=== PATIENT | female | born 1950 | race Caucasian/White ===

== ENCOUNTER 2023-01-31 10:57 | Emergency (ER) | payer MEDICARE, SELFPAY ==
[2023-01-31] VITALS (13 sets, daily range): BP systolic 109–158; BP diastolic 53–76; PULSE 62–76; RESP 9–26; TEMP 37.1; O2SAT 86–98; BMI 23.6
--- NOTE | 2023-01-31 11:01 | DI.CT.S_ITS ---
PROCEDURE: CT HEAD/BRAIN WO CON INDICATIONS: fall on thinners TECHNIQUE: Noncontrast 4.5 mm thick angled axial sections acquired from the foramen magnum to the vertex, with coronal and sagittal reformats. For radiation dose reduction, the following was used: automated exposure control, adjustment of mA and/or kV according to patient size. COMPARISON: None. FINDINGS: Image quality: Excellent. CSF spaces: Basal cisterns are patent. No extra-axial fluid collections. Ventricles are normal in size and shape. Brain: No midline shift. No intracranial masses or hemorrhage. Jay-white matter interface is normal. Moderate atrophy and mild white matter chronic ischemic changes Skull and face: Calvarium and visualized facial bones are intact, without suspicious lesions. Midline posterior parietal scalp hematoma Sinuses: Visualized sinuses and mastoids are clear. IMPRESSION: Posterior parietal scalp hematoma without skull fracture or intracranial hemorrhage Approved by: Uri Cardoza M.D. on 01/31/2023 at 10:45
--- NOTE | 2023-01-31 11:01 | DI.CT.S_ITS ---
PROCEDURE: CT CERVICAL SPINE WO CON INDICATIONS: fall on thinners TECHNIQUE: Noncontrast 3 mm thick sections acquired from the skull base to the T4 level. Sagittal and coronal reformats were then constructed. For radiation dose reduction, the following was used: automated exposure control, adjustment of mA and/or kV according to patient size. COMPARISON: None. FINDINGS: Image quality: Excellent. Bones: No fractures or dislocations. Visualized superior ribs are intact. Degenerative disc space narrowing and hypertrophic facet joints noted at C4-5, C5-6, and degenerative anterior spondylolisthesis at C6-7 as well as in upper thoracic spine. Soft tissues: Prevertebral soft tissues are normal in thickness. No paravertebral hematomas. No apical pneumothoraces. IMPRESSION: Degenerative changes without fracture or traumatic malalignment Approved by: Uri Cardoza M.D. on 01/31/2023 at 10:51
--- NOTE | 2023-01-31 11:07 | DI.RAD.S_ITS ---
PROCEDURE: XR CHEST 1V INDICATIONS: syncope TECHNIQUE: One view of the chest was acquired. COMPARISON: None. FINDINGS: Surgical changes and devices: None. Lungs and pleura: Minimal left basilar atelectasis and or infiltrate Mediastinum: Mediastinal contours appear normal. Heart size is normal. Atherosclerotic vascular calcification noted in the aortic arch. Bones and chest wall: No suspicious bony lesions. Overlying soft tissues appear unremarkable. IMPRESSION: Minimal left basilar atelectasis and or infiltrate Approved by: Uri Cardoza M.D. on 01/31/2023 at 10:54
[2023-01-31 11:13] LABS: Add Manual Diff / Slide Review NO; Basophils Absolute Auto 100 /uL (0-100); Eosinophils Absolute Auto 100 /uL (0-450); Eosinophils Percent Auto 1.5 % (2-4); Hematocrit 41.6 % (36-46); Hemoglobin 13.9 g/dL (12.0-16.0); Lymphocytes Absolute Auto 2700 /uL (1100-4500); Lymphocytes Percent Auto 39.4 % (25-40); Mean Corpuscular HGB Conc 33.5 % (30-36); Mean Corpuscular Hemoglobin 29.3 PG (26-34); Mean Corpuscular Volume 87.6 fL (80-100); Monocytes Absolute Auto 800 /uL (0-900); Monocytes Percent Auto 11.6 % (3-14); Neutrophils Absolute Auto 3200 /uL (1500-7000); Neutrophils Percent Auto 46.5 % (50-75); Platelet Count 262 X10^3/uL (150-400); Red Blood Cell Count 4.75 X10^6/uL (4.0-5.2); Red Cell Distribution Width 14.8 % (11.6-14.8); White Blood Cell Count 6.8 X10^3/uL (4.5-11.0)
--- NOTE | 2023-01-31 11:14 | ED_ITS ---
HPI - Trauma General Chief Complaint: Syncope Stated Complaint: Fall Time Seen by Provider: 01/31/23 11:07 Source: patient, EMS, RN notes reviewed and old records reviewed Mode of arrival: EMS Limitations: no limitations History of Present Illness HPI narrative: 72-year-old female with history of atrial fibrillation on Eliquis, metoprolol, intermittent hypotension, dyslipidemia and prior small bowel obstructions with reported syncopal episode. Patient also had reported pulmonary emboli after hip fracture in the past. Patient was walking it [facility] with family. She states she felt lightheaded immediately before and then next thing she knows she woke up on the ground. Her family was with her witnessed the event said she shook for about 5 seconds but quickly regained consciousness. Patient has a l arge lump on the back of her. She states hurts in the back of her head, no other intracranial headache, no vision changes, she denies neck pain reported upper thoracic pain and reports some left lateral chest pain by the axilla. Patient denies any shortness of breath. No anterior chest pain. She is nauseated and vomiting. She states she was not immediately afterwards but states after she received narcotic pain medications and she also does not tolerate driving backwards and cars well has had multiple episodes of vomiting and diaphoretic just prior to arrival. Patient denies any abdominal back or flank pain. No other GI or urinary symptoms. No numbness, tingling or weakness. Patient states she is not passed out in the past but has had low blood pressures and was reported have an alert on her Apple watch after the event for a low heart rate. She states her medications include Eliquis, metoprolol for her rhythm at 12.5 mg twice daily and a statin. She is not sure she took her Eliquis and metoprolol this morning. She states she has a known right bundle-branch block, denies any cardiac stents. She is had prior surgery for bowel obstruction and is largest sulfa states she does not tolerate narcotics well. Denies tobacco had a glass of wine last night, no illicit. Related Data Allergies Allergy/AdvReac Type Severity Reaction Status Date / Time Sulfa (Sulfonamide Allergy Verified 01/31/23 11:27 Antibiotics) sulfacetamide Allergy Verified 01/31/23 11:27 [From Sulfamide] Review of Systems Review of Systems ROS Unobtainable: All systems reviewed & are unremarkable except as noted in HPI and below Patient History Social History Smoking Status: Never smoker Exam Narrative Exam Narrative: GEN: Patient appears in moderate distress. HEAD: Patient has hematoma posterior scalp, no obvious abrasion or laceration, no raccoon/Maynard sign. NECK: Nontender, painless range of motion, trachea midline There is no Nexus criteria, no midline line tenderness, distracting injury, altered mental status, neuro deficit, recent EtOH. EYES: PERRLA, EOMI ENT: External inspection normal, trachea is midline, TM's are normal no hemotypanum, Nares are clear, no septal hematoma, no dental or oral injury, airway is normal and with normal occlusion, No bony tenderness RESP: Chest is nontender and has symmetric movement, no ecchymosis, breath sounds are normal no crackles, wheezes or rales CVS: Heart sounds are normal, no murmur noted, No JVD. ABG/GI: Nontender, soft, normal bowel sounds, no distention, no organomegaly, pelvic rock is negative NEURO: Oriented AOx3, neuro is grossly intact, sensation and motor is normal all 4 extremities moving, cranial nerves II through XII are intact, GCS i 15 PSYCH: Normal mood and affect SKIN: Intact, warm and dry, no crepitus and without decubitus BACK: No CVA tenderness, no vertebral tenderness, no step-off's, no crepitus EXT: Atraumatic, hips are nontender, no pedal edema, normal color and temperature, normal range of motion of extremities with normal tendon exam, 2+ pulses in all four extremities Initial Vital Signs Initial Vital Signs: Vital Signs Temperature 98.7 F 01/31/23 11:00 Pulse Rate 63 01/31/23 11:00 Respiratory Rate 20 01/31/23 11:00 Blood Pressure 158/76 H 01/31/23 11:00 Pulse Oximetry 98 01/31/23 11:00 Oxygen Delivery Method Room Air 01/31/23 11:00 Course Orders Ordered: ED Orders 01/31/23 11:00 Complete Blood Count AUTO DIFF Stat Comprehensive Metabolic Panel Stat D Dimer Stat Lipase Stat NT-proBNP (BNP-Adult 18+) Stat PTT Partial Thromboplastin Igor Stat Prothrombin Time INR Stat Troponin & CK Cardiac Panel Stat 01/31/23 11:01 CT cervical spine wo con Stat CT head/brain wo con Stat 01/31/23 11:07 XR chest 1V Stat 01/31/23 11:30 EKG-12 Lead Stat 01/31/23 11:37 COVID19 -Nasal RAPID Stat 01/31/23 12:16 CT angio chest PE protocol Stat 01/31/23 12:30 Trop I [Troponin I] Stat 01/31/23 13:09 Trop I [Troponin I] Stat Discontinued Medications Acetaminophen (Acetaminophen 325 Mg Tablet) 975 mg PO NOW ONE Stop: 01/31/23 14:31 Last Admin: 01/31/23 14:33 Dose: 975 mg Documented By: YOLA Sodium Chloride (Normal Saline 0.9%) 1,000 mls @ 1,000 mls/hr IV BOLUS ONE Stop: 01/31/23 12:06 Last Infusion: 01/31/23 14:06 Dose: 0 mls/hr Documented By: Admin: 01/31/23 12:59 Dose: 1,000 mls/hr Documented By: YOLA Lorazepam (Lorazepam 2 Mg/Ml Inj) 0.5 mg IV NOW ONE Stop: 01/31/23 11:10 Last Admin: 01/31/23 11:26 Dose: 0.5 mg Documented By: YOLA Vital Signs Vital signs: Vital Signs - 8 hr 01/31/23 11:32 01/31/23 11:35 01/31/23 11:35 Pulse Rate 62 62 Respiratory Rate 14 15 Blood Pressure 115/55 L Pulse Oximetry 93 91 01/31/23 12:00 01/31/23 12:00 01/31/23 12:30 Pulse Rate 63 Respiratory Rate 9 L Blood Pressure 109/53 L 109/58 L Pulse Oximetry 95 01/31/23 12:30 01/31/23 13:00 01/31/23 13:30 Pulse Rate 66 68 68 Respiratory Rate 14 14 14 Blood Pressure Pulse Oximetry 97 98 86 L 01/31/23 14:00 01/31/23 14:24 01/31/23 14:24 Pulse Rate 70 73 Respiratory Rate 12 26 H Blood Pressure 113/69 Pulse Oximetry 95 01/31/23 14:27 01/31/23 14:27 01/31/23 14:30 Pulse Rate 76 73 Respiratory Rate 26 H 21 Blood Pressure 122/75 Pulse Oximetry MDM - Trauma Lab Data 01/31/23 11:00 01/31/23 11:00 Labs: Lab Results 01/31/23 01/31/23 01/31/23 Range/Units 11:00 11:00 11:00 WBC 6.8 (4.5-11.0) X10^3/uL RBC 4.75 (4.0-5.2) X10^6/uL Hgb 13.9 (12.0-16.0) g/dL Hct 41.6 (36-46) % MCV 87.6 (80-100) fL MCH 29.3 (26-34) PG MCHC 33.5 (30-36) % RDW 14.8 (11.6-14.8) % Plt Count 262 (150-400) X10^3/uL Neut % (Auto) 46.5 L (50-75) % Lymph % (Auto) 39.4 (25-40) % [place] % (Auto) 11.6 (3-14) % Eos % (Auto) 1.5 L (2-4) % Baso % (Auto) 1.0 (0-2) % Neut # (Auto) 3200 (8248-3189) /uL Lymph # (Auto) 2700 (8880-0273) /uL [place] # (Auto) 800 (0-900) /uL Eos # (Auto) 100 (0-450) /uL Baso # (Auto) 100 (0-100) /uL PT 13.7 H (10.1-12.7) SECONDS INR 1.2 (0.9-1.3) APTT 28 (26-36) SECONDS D-Dimer 2563 H (<500) ng/ml Sodium 139 (137-145) mmol/L Potassium 4.0 (3.4-5.1) mmol/L Chloride 102 (98-107) mmol/L Carbon Dioxide 32 (22-32) mmol/L BUN 13 (7-17) mg/dL Creatinine 0.69 (0.52-1.04) mg/dL Estimated GFR > 60 (>60) mL/min BUN/Creatinine Ratio 18.8 (6-22) Glucose 85 (80-110) mg/dL Calcium 9.3 (8.4-10.2) mg/dL Total Bilirubin 0.4 (0.2-1.3) mg/dL AST 40 H (14-36) IU/L ALT 35 H (<35) IU/L Alkaline Phosphatase 47 (38-126) U/L Total Creatine Kinase 56 (30-135) U/L Troponin I < 0.012 (0.01-0.034) ng/mL NT-Pro-B Natriuret Pep 946 H (<125) pg/mL Total Protein 6.6 (6.3-8.2) g/dL Albumin 4.1 (3.5-5.0) g/dL Globulin 2.5 (1.7-4.1) g/dL Albumin/Globulin Ratio 1.6 (1.0-2.8) Lipase 88 (23-300) U/L SARS-CoV-2 (PCR) (Negative) 01/31/23 01/31/23 01/31/23 Range/Units 11:37 12:30 13:09 WBC (4.5-11.0) X10^3/uL RBC (4.0-5.2) X10^6/uL Hgb (12.0-16.0) g/dL Hct (36-46) % MCV (80-100) fL MCH (26-34) PG MCHC (30-36) % RDW (11.6-14.8) % Plt Count (150-400) X10^3/uL Neut % (Auto) (50-75) % Lymph % (Auto) (25-40) % [place] % (Auto) (3-14) % Eos % (Auto) (2-4) % Baso % (Auto) (0-2) % Neut # (Auto) (9893-9151) /uL Lymph # (Auto) (0084-9328) /uL [place] # (Auto) (0-900) /uL Eos # (Auto) (0-450) /uL Baso # (Auto) (0-100) /uL PT (10.1-12.7) SECONDS INR (0.9-1.3) APTT (26-36) SECONDS D-Dimer (<500) ng/ml Sodium (137-145) mmol/L Potassium (3.4-5.1) mmol/L Chloride (98-107) mmol/L Carbon Dioxide (22-32) mmol/L BUN (7-17) mg/dL Creatinine (0.52-1.04) mg/dL Estimated GFR (>60) mL/min BUN/Creatinine Ratio (6-22) Glucose (80-110) mg/dL Calcium (8.4-10.2) mg/dL Total Bilirubin (0.2-1.3) mg/dL AST (14-36) IU/L ALT (<35) IU/L Alkaline Phosphatase (38-126) U/L Total Creatine Kinase (30-135) U/L Troponin I < 0.012 < 0.012 (0.01-0.034) ng/mL NT-Pro-B Natriuret Pep (<125) pg/mL Total Protein (6.3-8.2) g/dL Albumin (3.5-5.0) g/dL Globulin (1.7-4.1) g/dL Albumin/Globulin Ratio (1.0-2.8) Lipase (23-300) U/L SARS-CoV-2 (PCR) Negative (Negative) Imaging Data CT scan - head: Radiologist's Impression: [place] [address] CT Scan Report Signed Patient: Barbie Olson MR#: [id number] : 1950 Acct:[id number] Age/Sex: 72 / F Date of Service: 01/31/23 Loc: ED Accession Number: [id number] ?? Procedure: CT head/brain wo con Ordering Provider: Maribeth Hawk D.O. PROCEDURE:? CT HEAD/BRAIN WO CON ? INDICATIONS:? fall on thinners ? TECHNIQUE:? Noncontrast 4.5 mm thick angled axial sections acquired from the foramen magnum to the vertex, with coronal and sagittal reformats.? For radiation dose reduction, the following was used:? automated exposure control, adjustment of mA and/or kV according to patient size.? ? COMPARISON:? None. ? FINDINGS:? Image quality:? Excellent.? ? CSF spaces:? Basal cisterns are patent.? No extra-axial fluid collections.? Ventricles are normal in size and shape.? ? Brain:? No midline shift.? No intracranial masses or hemorrhage.? Jay-white matter interface is normal.? Moderate atrophy and mild white matter chronic ischemic changes ? Skull and face:? Calvarium and visualized facial bones are intact, without suspicious lesions.? Midline posterior parietal scalp hematoma ? Sinuses:? Visualized sinuses and mastoids are clear.? ? IMPRESSION:? ? Posterior parietal scalp hematoma without skull fracture or intracranial hemorrhage ? ? ? Approved by: Uri Cardoza M.D. on 01/31/2023 at 10:45? CT - cervical spine: Radiologist's Impression: Close Chest X-Ray (Signed) Aram Cardozaic - 01/31/[address] (Signed) Cardoza,Uri - 01/31/[address] (Signed) SoynUri - 01/31/23 Launch?Image [address] [address] [address] Scan Report Signed Patient: Barbie Olson MR#: [id number] : 1950 Acct:[id number] Age/Sex: 72 / F Date of Service: 01/31/23 Loc: ED Accession Number: [id number] ?? Procedure: CT cervical spine wo con Ordering Provider: Maribeth Hawk D.O. PROCEDURE:? CT CERVICAL SPINE WO CON ? INDICATIONS:? fall on thinners ? TECHNIQUE:? Noncontrast 3 mm thick sections acquired from the skull base to the T4 level.? Sagittal and coronal reformats were then constructed.? For radiation dose reduction, the following was used:? automated exposure control, adjustment of mA and/or kV according to patient size.? ? COMPARISON:? None. ? FINDINGS:? Image quality:? Excellent.? ? Bones:? No fractures or dislocations.? Visualized superior ribs are intact.? Degenerative disc space narrowing and hypertrophic facet joints noted at C4-5, C5-6, and degenerative anterior spondylolisthesis at C6-7 as well as in upper thoracic spine. ? Soft tissues:? Prevertebral soft tissues are normal in thickness.? No paravertebral hematomas.? No apical pneumothoraces.? ? ? IMPRESSION:? ? Degenerative changes without fracture or traumatic malalignment ? Approved by: Uri Cardoza M.D. on 01/31/2023 at 10:51? Chest x-ray: Radiologist's Impression: [address] [address] XRay Report Signed Patient: Barbie Olson MR#: [id number] : 1950 Acct:[id number] Age/Sex: 72 / F Date of Service: 01/31/23 Loc: ED Accession Number: [id number] ?? Procedure: XR chest 1V Ordering Provider: Maribeth Hawk D.O. PROCEDURE:? XR CHEST 1V ? INDICATIONS:? syncope ? TECHNIQUE:? One view of the chest was acquired.? ? COMPARISON:? None. ? FINDINGS:? ? Surgical changes and devices:? None.? ? Lungs and pleura:? Minimal left basilar atelectasis and or infiltrate ? Mediastinum:? Mediastinal contours appear normal.? Heart size is normal.? Atherosclerotic vascular calcification noted in the aortic arch. ? Bones and chest wall:? No suspicious bony lesions.? Overlying soft tissues appear unremarkable.? ? IMPRESSION:? ? Minimal left basilar atelectasis and or infiltrate ? ? ? Approved by: Uri Cardoza M.D. on 01/31/2023 at 10:54? ECG Data Attestation: I personally reviewed and interpreted this ECG as follows: Prior ECG tracings: not available for review Interpretation: Sinus rhythm, left anterior fascicular block rate of 61 DE 164 QRS of 106 QTC of 444. No acute ST changes. No priors. EKG 2. Normal sinus rate of 70 DE 156 QRS of 96 QTC 462 normal sinus rhythm left anterior fascicular block. Appear similar to today's earlier EKG. MDM Narrative Medical decision making narrative: 72-year-old female [place] she had an unprovoked syncopal episode. She hit her head. No seizure-like activity reported, patient did not have a postictal state. She has not had recurrent episodes of syncope in the past but she has known low blood pressure and low heart rate. She has a history of atrial fibrillation, she is on metoprolol daily states she runs normally 100 systolic to 110. Patient was quite nauseated and vomiting after transport but states she was not initially she did receive narcotic pain medications and she states riding backwards and vehicles very much causes her to be nauseated. I suspect she has potential concussion but is anticoagulated so had head CT as well as C-spine which not show acute change. Chest x-ray did not show any obvious changes labs were negative troponin x2 she did have an elevated dimer less likely to be pulmonary emboli she states she takes her medications regularly but had unprovoked syncope and hypotension. CT angio shows pulmonary nodule, T5 compression fracture consistent with her thoracic pain and no but no other acute pulmonary changes some mild coronary artery are sclerosis and a hiatal hernia. Patient's labs overall electrolytes, blood count, renal function, BNP did not show other acute cause. Patient has been bradycardic at times but appropriate here in the department. She is able to ambulate without much issue. She does have some persistent midthoracic pain consistent with her thoracic vertebral compression fracture. She prefers nonnarcotic medications was given Tylenol. Reviewed all of her findings need for follow-up, return precautions. Discussed with patient need for follow up with Holter monitor or ZIO patch as well as follow-up imaging for the nodule on her right upper lobe. Discharge Plan Departure Patient Disposition: Home Clinical Impression: Closed wedge compression fracture of T5 vertebra, Pulmonary nodule, Syncope, Hiatal hernia, Concussion, Scalp hematoma Instructions: DI for Syncope in Adults (Fainting) Activity Restrictions/Additional Instructions: Please follow-up with your physician for recheck. I would recommend having a ZIO patch Holter monitor as an outpatient. Your workup today shows a small compression fracture at your 5th thoracic vertebrae this maybe older new but secondary to your fall could be new. You do have a pulmonary nodule on your imaging is recommended have follow-up and repeat imaging to follow this Please return for recurrent episodes of lightheadedness or passing out, fast or irregular heartbeat, chest pain, shortness of breath, new swelling in her extremities or other new or concerning changes. Referrals: Miscellaneous,Doctor, [Primary Care Provider] - Stand Alone Forms: Patient Portal/API
[2023-01-31 11:19] LABS: Alanine Aminotransferase 35 IU/L (<35); Albumin 4.1 g/dL (3.5-5.0); Albumin Globulin Ratio 1.6 (1.0-2.8); Alkaline Phosphatase 47 U/L (38-126); Aspartate Aminotransferase 40 IU/L (14-36); BUN Creatinine Ratio 18.8 (6-22); Bilirubin Total 0.4 mg/dL (0.2-1.3); Blood Urea Nitrogen 13 mg/dL (7-17); Calcium 9.3 mg/dL (8.4-10.2); Carbon Dioxide 32 mmol/L (22-32); Chloride 102 mmol/L (98-107); Creatine Kinase 56 U/L (30-135); Estimated Glomerular Filt Rate > 60 mL/min (>60); Globulin 2.5 g/dL (1.7-4.1); Glucose 85 mg/dL (80-110); HEMOLYSIS < 15 (0-50); Lipase 88 U/L (23-300); Sodium 139 mmol/L (137-145); Total Protein 6.6 g/dL (6.3-8.2)
[2023-01-31 11:24] LABS: INR 1.2 (0.9-1.3); Prothrombin Time 13.7 SECONDS (10.1-12.7)
[2023-01-31 11:25] LABS: D Dimer 2563 ng/ml (<500)
[2023-01-31 11:26] LABS: PTT Partial Thromboplastin Tim 28 SECONDS (26-36)
[2023-01-31] MEDS: LORazepam 2 MG/ML INJ 0.5 MG IV (11:26)
[2023-01-31 11:31] LABS: NT-proBNP (BNP-Adult 18+) 946 pg/mL (<125); Troponin I < 0.012 ng/mL (0.01-0.034)
[2023-01-31 11:56] LABS: COVID19 -Nasal RAPID Negative (Negative)
--- NOTE | 2023-01-31 12:16 | DI.CT.S_ITS ---
PROCEDURE: CT ANGIO CHEST PE PROTOCOL INDICATIONS: thoracic back pain, syncope, elevated dimer TECHNIQUE: After the administration of intravenous contrast, 2 mm thick sections acquired from the pulmonary apices to the posterior costophrenic angles. 3-dimensional maximum intensity projection (MIP) coronal and sagittal reformats were then acquired through the thorax. For radiation dose reduction, the following was used: automated exposure control, adjustment of mA and/or kV according to patient size. COMPARISON: None. FINDINGS: Image quality: Excellent. Pulmonary arteries: Pulmonary arteries are normal in size, and demonstrate no intraluminal filling defects to suggest central pulmonary embolism. Lungs and pleura: There is a 2 mm nodule in the right upper lobe (series 5, image 75). Lungs are otherwise clear. No pleural effusions or pneumothorax. Central and peripheral airways are patent. Mediastinum: Heart size is normal, without pericardial effusion. There is a borderline enlarged right paratracheal lymph node measuring 1 cm. Thoracic aorta is normal in caliber and enhancement. Esophagus is normal in caliber. Moderate hiatal hernia. Bones and chest wall: No suspicious bony lesions. Mild compression fracture of T5 of indeterminate chronicity. Thyroid gland is normal. No axillary or supraclavicular adenopathy. Abdomen: Visualized upper abdominal solid organs appear normal in the early arterial phase of enhancement. IMPRESSION: 1. No evidence for pulmonary embolism. 2. Mild compression fracture of T5 of indeterminate chronicity. 3. No acute pulmonary abnormalities. 4. A 2 mm nodule in the right upper lobe. Please see enclosed follow-up recommendation. 5. Borderline sized mediastinal lymph node, most likely reactive. 6. Mild coronary artery atherosclerosis. 7. Moderate-sized hiatal hernia. Fleischner Society criteria for SOLID lung nodule followup. Nodule size (mm)Low-risk patientHigh-risk patient?4No follow-up neededFollow-up at 12 mo; if no change, no further follow-up>4-1Dsoblp-wr CT at 12 mo; if no change, no further follow-up needed.Initial follow-up CT at 6-12 mo, then 18-24 mo if no change. >6-8Initial follow-up CT at 6-12 mo, then 18-24 mo if no change. Initial follow-up CT at 3-6 mo, then 9-12 mo and 24 mo if no change. >8Follow-up CT at 3, 9, 24 mo. Or PET and/or biopsy.Same as for low-risk pts. Dictated by: Chandana Morelos M.D. on 01/31/2023 at 13:19 Approved by: Chandana Morelos M.D. on 01/31/2023 at 13:26
[2023-01-31] MEDS: SODIUM CHLORIDE 0.9% 1,000 ML 1000 ML IV (12:59)
[2023-01-31 13:05] LABS: Troponin I < 0.012 ng/mL (0.01-0.034)
[2023-01-31 13:55] LABS: Troponin I < 0.012 ng/mL (0.01-0.034)
[2023-01-31] MEDS: ACETAMINOPHEN 325 MG TABLET 975 MG PO (14:33)
== END 2023-01-31 14:55 | disposition home or self-care (01) ==
PROVIDERS: Emergency Provider Emergency Medicine
DX: S22.050A Wedge compression fracture of T5-T6 vertebra, initial encounter for closed fracture (principal); R91.1 Solitary pulmonary nodule; R55 Syncope and collapse; K44.9 Diaphragmatic hernia without obstruction or gangrene; S06.0X0A Concussion without loss of consciousness, initial encounter; S00.03XA Contusion of scalp, initial encounter; Z79.01 Long term (current) use of anticoagulants; W18.30XA Fall on same level, unspecified, initial encounter; Z20.822 Contact with and (suspected) exposure to COVID-19
CPT/HCPCS: 70450; 71045; 71275; 72125; 80053; 82550; 83690; 83880; 84484; 85025; 85379; 85610; 85730; 87635; 93005; 93010; 96361; 96374; 99284; C9803; J2060; Q9967